=== PATIENT | female | born 1970 | race Caucasian/White ===

== ENCOUNTER 2019-12-22 16:31 | Emergency (ER) | payer SELFPAY ==
[~2019-12-22] VITALS: Ht 170.2 cm; Wt 99.1 kg
[2019-12-22 17:02] VITALS: Ht 170.2 cm; Wt 99.1 kg
[2019-12-22] MEDS ORDERED: ZESTRIL10 MG PO (17:04)
[2019-12-22] MEDS ORDERED: GLUCOPHAGE500 MG PO (17:04)
[2019-12-22] MEDS ORDERED: NEURONTIN 300300 MG PO (17:04)
[2019-12-22] MEDS ORDERED: TOUJEO SOL300 UNIT/1 SC (17:05)
[2019-12-22 18:20] LABS: BASOPHILS 0.4 % (0-2); EOSINOPHILS 2.7 % (0-7); HEMATOCRIT 35.5 % (36.0-48.0); HEMOGLOBIN 11.1 g/dL (12-16); IMMATURE GRANULOCYTES 0.1 % (0-5); LYMPHOCYTES 31.5 % (15-50); MCH 25.6 pg (26.0-34.0); MCHC 31.3 g/dL (31.0-37.0); MCV 81.8 fL (80.0-100.0); MEAN PLATELET VOLUME 9.6 fL (7.4-10.4); MONOCYTES 6.3 % (2-11); PLATELET COUNT 330 10x3/uL (130-400); RBC 4.34 10x6/uL (4.00-5.40); WBC 7.5 10x3/uL (4.8-10.8)
[2019-12-22 18:34] VITALS: BP 164/80
[2019-12-22 20:08] LABS: ALBUMIN 3.5 g/dL (3.4-5.0); ANION GAP 10.5 mmol/L (8-16); BILIRUBIN - TOTAL 0.21 mg/dL (0.2-1.3); C-REACTIVE PROTEIN 0.3 mg/dL (0.0-0.9); CALCIUM 8.5 mg/dL (8.5-10.1); CARBON DIOXIDE 26.8 mmol/L (21.0-32.0); POTASSIUM - SERUM 4.3 mmol/L (3.5-5.1)
[2019-12-22] MEDS ORDERED: FUROSEMIDE20 MG PO (20:21)
== END 2019-12-22 20:55 | disposition home or self-care (01) ==
LOC: D.ER 16:31
PROVIDERS: Family Medicine
DX: R60.9 Edema, unspecified (principal); E11.65 Type 2 diabetes mellitus with hyperglycemia; Z79.84 Long term (current) use of oral hypoglycemic drugs

== ENCOUNTER 2020-01-07 05:47 | Emergency (ER) | payer OTHER ==
[~2020-01-07] VITALS: Ht 170.2 cm; Wt 98.9 kg
[~2020-01-07 05:47] MED LIST: FUROSEMIDE20 MG PO; GLUCOPHAGE500 MG PO; NEURONTIN 300300 MG PO; TOUJEO SOL300 UNIT/1 SC; ZESTRIL10 MG PO
[2020-01-07 05:56] VITALS: BP 192/102; Ht 170.2 cm; Wt 98.9 kg
[2020-01-07 06:27] LABS: BASOPHILS 0.5 % (0-2); EOSINOPHILS 3.9 % (0-7); HEMATOCRIT 35.5 % (36.0-48.0); HEMOGLOBIN 11.2 g/dL (12-16); IMMATURE GRANULOCYTES 0.2 % (0-5); LYMPHOCYTES 40.5 % (15-50); MCH 25.3 pg (26.0-34.0); MCHC 31.5 g/dL (31.0-37.0); MCV 80.3 fL (80.0-100.0); MONOCYTES 5.8 % (2-11); NEUTROPHILS 49.1 % (40-80); PLATELET COUNT 315 10x3/uL (130-400); RBC 4.42 10x6/uL (4.00-5.40); RDW 13.9 % (11.5-14.5); WBC 6.4 10x3/uL (4.8-10.8)
[2020-01-07 06:36] LABS: CALC OSMOLALITY 280 mosm/kg (275-300); CALCIUM 8.5 mg/dL (8.5-10.1); CARBON DIOXIDE 25.7 mmol/L (21.0-32.0); CHLORIDE - SERUM 102 mmol/L (98-107); CREATININE - SERUM 0.7 mg/dL (0.6-1.3); GLUCOSE 299 mg/dL (74-106); POTASSIUM - SERUM 3.9 mmol/L (3.5-5.1); SODIUM 134 mmol/L (136-145); UREA NITROGEN 17 mg/dL (7-18); eGFR NON AFRICAN AMERICAN > 90 mL/min (90-120)
[2020-01-07 06:50] LABS: ALBUMIN 3.5 g/dL (3.4-5.0); ALKALINE PHOSPHATASE 62 U/L (30-120); ALT (SGPT) 14 U/L (10-68); BILIRUBIN - TOTAL 0.47 mg/dL (0.2-1.3); C-REACTIVE PROTEIN 1.1 mg/dL (0.0-0.9); PRO BNP 235 pg/mL (0-125); PROTEIN - SERUM 7.4 g/dL (6.4-8.2)
[2020-01-07 06:51] LABS: TROPONIN-I < 0.017 ng/mL (0.000-0.060)
[2020-01-07] MEDS ORDERED: DICLOFENAC SODI50 MG PO (06:56)
[2020-01-07] MEDS ORDERED: CYCLOBENZAPRINE10 MG PO (06:58)
== END 2020-01-07 07:05 | disposition home or self-care (01) ==
LOC: D.ER 05:47
PROVIDERS: Family Medicine
DX: M54.6 Pain in thoracic spine (principal); E11.9 Type 2 diabetes mellitus without complications; Z79.84 Long term (current) use of oral hypoglycemic drugs; R05 Cough